=== PATIENT | female | born 1935 | race Two or more races ===

== ENCOUNTER 2017-07-15 09:48 | Outpatient (CLI) | payer OTHER ==
[~2017-07-15 09:48] MED LIST: ATENOLOL25 GM; ATENOLOL25 MG PO; LISINOPRIL10 MG PO; TUSSI PRES-B L120 M1 PO
== END 2017-07-15 09:55 | disposition home or self-care (01) ==
LOC: LAB 09:48
DX: D51.3 Other dietary vitamin B12 deficiency anemia (principal); M81.0 Age-related osteoporosis without current pathological fracture; I10 Essential (primary) hypertension; K57.30 Diverticulosis of large intestine without perforation or abscess without bleeding; E55.9 Vitamin D deficiency, unspecified; E78.2 Mixed hyperlipidemia; K90.89 Other intestinal malabsorption

== ENCOUNTER → 2017-08-08 | Outpatient (CLI) | payer OTHER | END | disposition home or self-care (01) | LOC: PPHC 09:53 | DX: Z02.89 Encounter for other administrative examinations (principal) ==

== ENCOUNTER 2018-01-21 08:30 | Outpatient (CLI) | payer OTHER | END 2018-01-21 08:34 | disposition home or self-care (01) | LOC: LAB 08:30 | DX: D51.3 Other dietary vitamin B12 deficiency anemia (principal); M81.0 Age-related osteoporosis without current pathological fracture; I10 Essential (primary) hypertension; K57.30 Diverticulosis of large intestine without perforation or abscess without bleeding; E55.9 Vitamin D deficiency, unspecified; R06.3 Periodic breathing; E06.5 Other chronic thyroiditis; E78.2 Mixed hyperlipidemia; K90.89 Other intestinal malabsorption; R97.0 Elevated carcinoembryonic antigen [CEA]; R97.8 Other abnormal tumor markers ==

== ENCOUNTER 2018-01-21 09:27 | Outpatient (CLI) | payer OTHER | END 2018-01-21 09:35 | disposition home or self-care (01) | LOC: LAB 09:27 | DX: K57.30 Diverticulosis of large intestine without perforation or abscess without bleeding (principal) ==

== ENCOUNTER 2018-11-17 08:35 | Outpatient (CLI) | payer OTHER | END 2018-11-17 08:44 | disposition home or self-care (01) | LOC: MAMO-SONO 08:35 | DX: D51.3 Other dietary vitamin B12 deficiency anemia (principal); M81.0 Age-related osteoporosis without current pathological fracture; I10 Essential (primary) hypertension; K57.30 Diverticulosis of large intestine without perforation or abscess without bleeding; E55.9 Vitamin D deficiency, unspecified; E06.3 Autoimmune thyroiditis; E06.5 Other chronic thyroiditis; E78.2 Mixed hyperlipidemia; K90.89 Other intestinal malabsorption; Z12.31 Encounter for screening mammogram for malignant neoplasm of breast; Z87.898 Personal history of other specified conditions ==

== ENCOUNTER 2018-12-10 17:02 | Emergency (ER) | payer OTHER ==
[~2018-12-10] VITALS: Ht 152.4 cm; Wt 45.4 kg
[2018-12-10] MEDS ORDERED: LEVOTHYROXINE25 MCG (17:27)
== END 2018-12-10 21:52 | disposition home or self-care (01) ==
LOC: ER 17:02
DX: M54.2 Cervicalgia (principal); B34.9 Viral infection, unspecified

== ENCOUNTER → 2018-12-16 | Emergency (ER) | payer OTHER ==
[~2018-12-16] VITALS: Ht 152.4 cm; Wt 45.4 kg
[~2018-12-16] MED LIST changes: +LEVOTHYROXINE25 MCG
== END | disposition home or self-care (01) ==
LOC: ER 11:20
DX: R51 Headache (principal); R63.0 Anorexia

== ENCOUNTER 2019-02-20 09:01 | Outpatient (CLI) | payer OTHER | END 2019-02-20 09:04 | disposition home or self-care (01) | LOC: TOM 09:01 | DX: K57.30 Diverticulosis of large intestine without perforation or abscess without bleeding (principal); R10.33 Periumbilical pain ==

== ENCOUNTER → 2019-03-04 09:11 | Outpatient (CLI) | payer OTHER | END | disposition home or self-care (01) | LOC: LAB 09:11 | DX: D50.8 Other iron deficiency anemias (principal); D51.8 Other vitamin B12 deficiency anemias; I10 Essential (primary) hypertension; R97.0 Elevated carcinoembryonic antigen [CEA] ==

== ENCOUNTER 2021-01-03 10:25 | Emergency (ER) | payer OTHER ==
[~2021-01-03] VITALS: Ht 149.9 cm; Wt 52.2 kg
== END 2021-01-03 15:52 | disposition home or self-care (01) ==
LOC: ER 10:25 → CPU-OBS 12:54 → ER 15:52
DX: R42 Dizziness and giddiness (principal); Z95.0 Presence of cardiac pacemaker; B34.9 Viral infection, unspecified; R51.9 Headache, unspecified

== ENCOUNTER 2022-03-11 17:39 | Emergency (ER) | payer OTHER ==
[~2022-03-11] VITALS: Ht 147.3 cm; Wt 45.4 kg
[2022-03-11] MEDS ORDERED: PRILOSEC10 MG PO (17:49)
[2022-03-11] MEDS ORDERED: ARICEPT10 MG PO (17:49)
[2022-03-11] MEDS ORDERED: LOSARTAN POTASS50 MG PO (17:49)
[2022-03-11] MEDS ORDERED: LEXAPRO20 MG PO (17:49)
== END 2022-03-11 22:10 | disposition home or self-care (01) ==
LOC: ER 17:39
DX: S09.90XA Unspecified injury of head, initial encounter (principal); W18.30XA Fall on same level, unspecified, initial encounter; Y93.9 Activity, unspecified; Y92.019 Unspecified place in single-family (private) house as the place of occurrence of the external cause; G30.9 Alzheimer's disease, unspecified; F02.80 Dementia in other diseases classified elsewhere, unspecified severity, without behavioral disturbance, psychotic disturbance, mood disturbance, and anxiety; E78.00 Pure hypercholesterolemia, unspecified; I10 Essential (primary) hypertension; Z95.0 Presence of cardiac pacemaker; Z88.6 Allergy status to analgesic agent

== ENCOUNTER 2023-12-27 10:58 | Inpatient (IN) | payer OTHER ==
[~2023-12-27] VITALS: Ht 152.4 cm; Wt 53.5 kg
[~2023-12-27 10:58] MED LIST changes: +AMLODIPINE BESYL5 MG PO; +ARICEPT10 MG PO; +CALCIUM 500-VI1 EAC6 PO; +CEFDINIR300 MG PO; +DAILY VITAMIN1 EAC2 PO; +FAMOTIDINE20 MG PO; +INTEGRA PLUS C1 EACH PO; +INTESTINEX680 M1 PO; +LEVOTHYROXINE25 MCG PO; +LEXAPRO20 MG PO; +LOSARTAN POTAS100 MG PO; +LOSARTAN POTASS50 MG PO; +NAMENDA10 MG PO; +PRE PROTEIN1 EACH PO; +PRILOSEC10 MG PO; +RISPERDAL0.5 MG
[2023-12-27] MEDS ORDERED: 0.9 % SODIUM CHLORIDE 500 ML IV STA (12:33)
[2023-12-27 13:10] LABS: HEMATOCRIT 36.4 % (36.0-45.00); MEAN CELL VOLUME 87.4 fL (80.00-100.00); MEAN CORPUSCULAR HEMOGLOBIN 28.9 pg (27.00-32.0); PLATELET COUNT 243 K/uL (150-450); RED BLOOD COUNT 4.16 M/uL (4.00-6.00); RED CELL DISTRIBUTION WIDTH 14.6 % (11.5-14.5)
[2023-12-27 13:23] LABS: CALCIUM 9.2 mg/dL (8.5-10.1); CREATININE SERUM 0.78 mg/dL (0.55-1.02); GFR 69.86; POTASSIUM 3.83 mEq/L (3.5-5.1)
[2023-12-27 14:39] LABS: URINE APPEARANCE Clear; URINE BILIRRUBIN Negative (NEGATIVE); URINE BLOOD Moderate; URINE COLOR Yellow; URINE GLUCOSE Negative (NEGATIVE); URINE LEUKOCYTE Small; URINE NITRATE Negative; URINE PROTEIN 30 (NEGATIVE)
[2023-12-27 14:49] LABS: URINE BACTERIA 109.6 uL (0.0-1933); URINE EPITHELIAL CELLS 5.2 uL (0.0-38.8); URINE RBC 510.5 uL (0.0-20.8); URINE WBC 160.7 uL (0.0-23.2)
[2023-12-27 15:21] LABS: URINE MUCUS MODERATE
[2023-12-27 15:22] LABS: URINE CRYSTALS MODERATE /HPF
[2023-12-27] MEDS ORDERED: levoFLOXacin IN DEXTROSE 5 % 500MG/100ML PIGGYBAG IV STA (16:30)
[2023-12-27] MEDS ORDERED: levoFLOXacin IN DEXTROSE 5 % 500MG/100ML PIGGYBAG IV ONE (16:39)
[2023-12-27] MEDS ORDERED: hydrALAZINE HCL 20 MG VIAL IV PRN (19:15)
[2023-12-27] MEDS ORDERED: DEXTROSE 5 % AND 0.9 % NACL 1,000 ML IV SCH (19:15)
[2023-12-27] MEDS ORDERED: ONDANSETRON HCL 4 MG in 0.9 % SODIUM CHLORIDE 50 ML IV PRN (19:15)
[2023-12-27] MEDS ORDERED: ACETAMINOPHEN 500 MG GEL..CAP PO PRN (19:15)
[2023-12-27] MEDS ORDERED: KETOROLAC TROMETHAMINE 30 MG VIAL IV PRN (19:15)
[2023-12-27] MEDS ORDERED: DONEPEZIL HCL 5 MG TABLET PO SCH (19:16)
[2023-12-27] MEDS ORDERED: LEXAPRO 10 MG PO SCH (19:17)
[2023-12-27] MEDS ORDERED: IPRATROPIUM BROMIDE 0.5 MG/2.5 ML AMPUL.NEB IH ONE (19:44)
[2023-12-27 19:58] LABS: ABG PH 7.422 (7.35-7.45); ABG PO2 75.3 mmHg (80-100); BASE EXCESS 3.6 mmol/l; BICARBONATE 28.7 mmol/l (23-25); SaO2 95.4 %; Tco2 30.1 mmol/l; allen test SATISFACTORY; o2 21 %; puncture site RADIAL RIGHT
[2023-12-27] MEDS ORDERED: IPRATROPIUM BROMIDE 0.5 MG/2.5 ML AMPUL.NEB IH SCH (21:00)
[2023-12-27] MEDS ORDERED: FAMOTIDINE/PF 20 MG in 0.9 % SODIUM CHLORIDE 8 ML IV PUSH SCH (21:00)
[2023-12-27] MEDS ORDERED: FAMOTIDINE/PF 20 MG/2 ML VIAL ONE (21:28)
[2023-12-28] MEDS ORDERED: METHYLPREDNISOLONE SOD SUCC 40 MG VIAL IV SCH (01:00)
[2023-12-28] MEDS ORDERED: IPRATROPIUM BROMIDE 0.5 MG/2.5 ML AMPUL.NEB IH ONE ×3 (01:18→17:19)
[2023-12-28] MEDS ORDERED: METHYLPREDNISOLONE SOD SUCC 40 MG VIAL ONE (03:53)
[2023-12-28] MEDS ORDERED: LEVOTHYROXINE SODIUM 25 MCG TABLET PO SCH (06:00)
[2023-12-28 07:09] LABS: HEMATOCRIT 36.3 % (36.0-45.00); HEMOGLOBIN 12.1 g/dL (12.0-15.00); MEAN CELL VOLUME 87.1 fL (80.00-100.00); MEAN CORPUSCULAR HEMOGLOBIN 28.9 pg (27.00-32.0); MEAN CORPUSCULAR HGB CONC 33.2 g/dl (32.0-36.0); PLATELET COUNT 260 K/uL (150-450); RED BLOOD COUNT 4.17 M/uL (4.00-6.00); RED CELL DISTRIBUTION WIDTH 14.5 % (11.5-14.5)
[2023-12-28] MEDS ORDERED: MEMANTINE HCL 10 MG TABLET PO SCH (09:00)
[2023-12-28] MEDS ORDERED: RISPERIDONE 0.5 MG TABLET PO SCH (09:00)
[2023-12-28] MEDS ORDERED: levoFLOXacin IN DEXTROSE 5 % 150 ML IV SCH (09:00)
[2023-12-28] MEDS ORDERED: LOSARTAN POTASSIUM 50 MG TABLET PO SCH (09:00)
[2023-12-28] MEDS ORDERED: ENOXAPARIN SODIUM 40 MG/0.4 ML SYRINGE SUBCUTANEO SCH (09:00)
[2023-12-28 09:16] LABS: ERYTHROCYTE SEDIMENTATION RATE 111 mm/hr
[2023-12-28 12:38] LABS: PH,URINE 6.5 (5.0-8.0); URINE APPEARANCE Clear; URINE BILIRRUBIN Negative (NEGATIVE); URINE BLOOD Moderate; URINE COLOR Yellow; URINE GLUCOSE Negative (NEGATIVE); URINE LEUKOCYTE Trace; URINE NITRATE Negative; URINE PROTEIN 30 (NEGATIVE)
[2023-12-28 12:42] LABS: URINE BACTERIA 12.5 uL (0.0-1933); URINE EPITHELIAL CELLS 2.7 uL (0.0-38.8); URINE RBC 220.4 uL (0.0-20.8); URINE WBC 10.3 uL (0.0-23.2)
[2023-12-28 13:49] LABS: INR 1.11; PARTIAL THROMBOPLASTIN TIME 32.3 SECONDS (22.0-34.0); PROTHROMBIN TIME 11.6 SECONDS (9.0-11.5)
[2023-12-28 14:01] LABS: ALBUMIN 2.6 gm/dL (3.4-5.0); BILIRUBIN TOTAL 0.52 mg/dL (0.3-1.2); CALCIUM 8.7 mg/dL (8.5-10.1); CKMB 2.8 NG/ML (0.5-3.6); CREATININE SERUM 0.73 mg/dL (0.55-1.02); GFR 75.41; GLOBULINA 4.3 G/DL (2.4-3.5); POTASSIUM 3.52 mEq/L (3.5-5.1); TOTAL PROTEIN 6.9 gm/dL (6.4-8.2)
[2023-12-28 14:08] LABS: CHOL HDL RATIO 2.1 (0-5.0)
[2023-12-28 14:25] LABS: C-REACTIVE PROTEIN 4.9 MG/DL (0.00-0.29)
[2023-12-28] MEDS ORDERED: HALOPERIDOL LACTATE 5 MG/ML AMPUL IV PRN (21:30)
[2023-12-31] MEDS ORDERED: FAMOTIDINE/PF 20 MG in 0.9 % SODIUM CHLORIDE 8 ML IV PUSH SCH (09:00)
[2023-12-31] MEDS ORDERED: levoFLOXacin IN DEXTROSE 5 % 150 ML IV SCH (09:00)
== END 2023-12-31 13:32 | disposition home or self-care (01) | DRG 690 ==
LOC: ER 10:58 → MEDJ 20:29 → SEC-K 20:29 → MEDJ 12-28 17:32 → SEC-K 12-28 18:31 → MEDJ 12-28 18:34
PROVIDERS: General Practice; ADMIT Internal Medicine; ATTEND Internal Medicine
PROC: BW28ZZZ Computerized Tomography (CT Scan) of Head (ICD-10-PCS; principal; 2023-12-27)
PROC: BW24ZZZ Computerized Tomography (CT Scan) of Chest and Abdomen (ICD-10-PCS; 2023-12-27)
DX: N39.0 Urinary tract infection, site not specified (principal); G30.9 Alzheimer's disease, unspecified; F02.80 Dementia in other diseases classified elsewhere, unspecified severity, without behavioral disturbance, psychotic disturbance, mood disturbance, and anxiety; I10 Essential (primary) hypertension; E03.9 Hypothyroidism, unspecified; R13.10 Dysphagia, unspecified